=== PATIENT | female | born 1970 | race Caucasian/White ===

== ENCOUNTER 2016-11-16 14:23 | Outpatient (RCR) | payer BC ==
[2016-09-04 12:02] VITALS: BP 115/56
[~2016-11-16 14:23] MED LIST: AUGMENTIN 875-1 EAC1 PO; LEVOTHYROXINE PO; VITAMIN D1000 IU PO; XANAX0.25 MG PO
== END 2017-01-05 08:00 | disposition home or self-care (01) ==
LOC: PT 14:23
DX: M54.2 Cervicalgia (principal); R20.0 Anesthesia of skin; R20.2 Paresthesia of skin

== ENCOUNTER → 2022-06-22 | Outpatient (CLI) | payer BC | LOC: RAD 10:41 | DX: M47.814 Spondylosis without myelopathy or radiculopathy, thoracic region (principal) ==

== ENCOUNTER 2022-07-13 10:00 | Outpatient (RCR) | payer BC | END 2022-07-29 | disposition home or self-care (01) | LOC: PT | DX: M54.6 Pain in thoracic spine (principal) ==

== ENCOUNTER → 2023-01-05 | Outpatient (CLI) | payer BC | LOC: RAD 08:31 | DX: R05.1 Acute cough (principal) ==